=== PATIENT | male | born 1950 | race Caucasian/White ===

== ENCOUNTER 2017-06-06 15:00 | Observation (INO) | payer MEDICARE, OTHER ==
[~2017-06-06] VITALS: Ht 172.7 cm; Wt 97.5 kg
[2017-06-06 15:02] VITALS: BP 233/98; PULSE 86; RESP 16; TEMP 97.7; O2SAT 96
[2017-06-06 15:30] VITALS: BP 204/93
[2017-06-06] MEDS ORDERED: ASPIRIN 81 MG CHEW TAB CHEW ONE (15:30)
[2017-06-06] MEDS ORDERED: NITROGLYCERIN 0.4 MG SL 25 TABS/BTL SL PRN (15:30)
[2017-06-06 15:49] VITALS: BP 177/79; PULSE 82; RESP 20; O2SAT 95
--- NOTE | 2017-06-06 15:55 | RADRPT ---
EXAM DATE/TIME: 06/06/2017 15:32 [place] COMPARISON: No previous studies available for comparison. INDICATIONS : Chest pain. MEDICAL HISTORY : None. SURGICAL HISTORY : Spine stimulator. Cardiac stents. ENCOUNTER: Initial ACUITY: 2 days PAIN SCORE: 8/10 LOCATION: Bilateral chest FINDINGS: PA and lateral views of the chest demonstrate the lungs to be symmetrically aerated without evidence of mass, infiltrate or effusion. There is eventration of the right hemidiaphragm. The cardiomediasti nal contours are unremarkable. Osseous structures are intact. The stimulator lead overlies the centr al canal with the tips terminating at the approximate T5-T6 level. A humeral head prosthesis is seen on the left. CONCLUSION: No acute disease. Chris Cueva Jr., MD on June 06, 2017 at 15:52 Board Certified Radiologist. This report was verified electronically.
[2017-06-06 16:15] LABS: AUTOMATED NEUTROPHIL # 6.3 TH/MM3 (1.8-7.7); BASOPHIL # 0.1 TH/MM3 (0-0.2); BASOPHIL % 0.9 % (0.0-2.0); EOSINOPHIL % 0.5 % (0.0-4.0); LYMPH % 23.9 % (9.0-44.0); LYMPHOCYTE # 2.3 TH/MM3 (1.0-4.8); MEAN CELL VOLUME 92.8 FL (80.0-100.0); MEAN CORPUSCULAR HEMOGLOBIN 30.4 PG (27.0-34.0); MEAN CORPUSCULAR HGB CONC 32.8 % (32.0-36.0); MONO % 8.5 % (0.0-8.0); NEUT % 66.2 % (16.0-70.0); PLATELET COUNT 188 TH/MM3 (150-450); RED BLOOD COUNT 4.53 MIL/MM3 (4.50-5.90); RED CELL DISTRIBUTION WIDTH 14.7 % (11.6-17.2); WHITE BLOOD COUNT 9.5 TH/MM3 (4.0-11.0)
[2017-06-06 16:25] LABS: APTT (PATIENT) 23.3 SEC (24.3-30.1); INTERNATIONAL NORMALIZED RATIO 0.9 RATIO; PROTHROMBIN TIME - PATIENT 10.1 SEC (9.8-11.6)
[2017-06-06 16:32] LABS: CREATINE KINASE 159 U/L (39-308)
[2017-06-06 16:34] LABS: ANION GAP 7 MEQ/L (5-15); BICARBONATE 20.7 MEQ/L (21.0-32.0); BLOOD UREA NITROGEN 32 MG/DL (7-18); CHLORIDE 107 MEQ/L (98-107); GLOMERULAR FILTRATION RATE 69 ML/MIN (>89); MAGNESIUM 2.2 MG/DL (1.5-2.5); POTASSIUM 4.8 MEQ/L (3.5-5.1); SODIUM (NA) 135 MEQ/L (136-145)
[2017-06-06 16:35] LABS: HEMO FLAGS AUTO DIFF
[2017-06-06] MEDS ORDERED: ZANT150T2 PO (16:42)
[2017-06-06] MEDS ORDERED: HYDR-3583 PO (16:42)
[2017-06-06] MEDS ORDERED: LEVOTAB PO (16:42)
[2017-06-06] MEDS ORDERED: CLOP75TA PO (16:42)
[2017-06-06] MEDS ORDERED: LISI10TA3 PO (16:42)
[2017-06-06] MEDS ORDERED: ROSU1TAB8 PO (16:42)
[2017-06-06] MEDS ORDERED: FENT25DI T-DERMAL (16:42)
[2017-06-06] MEDS ORDERED: VERA300C PO (16:42)
[2017-06-06] MEDS ORDERED: PANT40TA3 PO (16:42)
[2017-06-06] MEDS ORDERED: CELE200C PO (16:42)
[2017-06-06] MEDS ORDERED: ASPI-516 CHEW (16:42)
[2017-06-06] MEDS ORDERED: FINA1TAB16 PO (16:42)
[2017-06-06 17:35] VITALS: BP 155/72; PULSE 61; RESP 18; O2SAT 96
[2017-06-06] MEDS ORDERED: SODIUM CHLORIDE 0.9% FLUSH 10 ML FLUSH IV FLUSH PRN (17:45)
[2017-06-06] MEDS ORDERED: NALOXONE HCL 0.4 MG/ML AMP IV PUSH PRN (17:45)
[2017-06-06 18:16] LABS: BANDS 2 % (0-6); MYELOCYTES 1 % (0-0); NEUTROPHIL # MANUAL DIFF 6.9 TH/MM3 (1.8-7.7); POLYS (SEG NEUTROPHILS) 70 % (16-70); WBC DIFF SAMPLE 100
[2017-06-06 18:17] LABS: PLATELET ESTIMATE SMEAR NORMAL (NORMAL); PLATELET MORPHOLOGY NORMAL (NORMAL); SCAN/DIFF FINAL DIFF MANUAL
--- NOTE | 2017-06-06 18:18 | HHI.HP ---
HPI Service [facility] Primary Care Physician No Primary Care Physician Admission Diagnosis chest pain Diagnoses: Travel History International Travel<30 Days: No Contact w/Intl Traveler <30 Da: No Traveled to Known Affected Are: No History of Present Illness chest pain midsternal with radiation to shoulder blades pressure like shortness of breath has been sweating a lot more in past 2 weeks like hot flushes similar to what he had about 1 week prior to heart attack- in november 2016 s/p 2 stent BP was high on arrival here not sure of bp at home0 did not bring machine took nitro but did not help but here more ntg given and asa and now it is improved - and now gone was having bad acid reflux like burning has hx of barretts and need egd every year no other symptoms recent travel from [place] and arrived monday- [address] Past Family Social History Past Medical History htn cad- 2 stents november 2016 heart murmur skin cancer - basal cell , melanoma- resected several years GERD/ Barretts Past Surgical History egd colonoscopy cornary angiogram stenting cholecystectomy appendectomy bilateral rotator left shoulder replaced 2 back surgery spinal stimulator knee surgery toe surgery tonsilectomy eye surgery for cataract 2 carpel tunnels Allergies: Coded Allergies: Penicillins (Verified Allergy, Unknown, 06/06/17) Uncoded Allergies: no mri due to metal in eyes (Allergy, Severe, pt was a welder production line combination, 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) neelam (Allergy, Severe, infection within 24 hours after placement, ) pt states he is really allergic to surgical neelam Family History sister- from heart issues mom- lung cancer dad- when pt was 10 yo, sister- meningitis at 3 yo Social History smokes cigars for about 35yrs, quit in november 2016 drink 3 shots a night no drugs Physical Exam Vital Signs Vital Signs Date Time Temp Pulse Resp B/P (MAP) Pulse Ox O2 Delivery O2 Flow Rate FiO2 06/06/17 17:35 61 18 155/72 (99) 96 Room Air 06/06/17 16:21 66 18 95 Room Air 06/06/17 15:49 82 20 177/79 (111) 95 Room Air 06/06/17 15:30 204/93 (130) 06/06/17 15:02 97.7 86 16 233/98 (143) 96 Physical Exam GENERAL: This is a well-nourished, well-developed patient, in no apparent distress. SKIN: No rashes, ecchymoses or lesions. Cool and dry. HEAD: Atraumatic. Normocephalic. No temporal or scalp tenderness. EYES: Pupils equal round and reactive. Extraocular motions intact. No scleral icterus. No injection or drainage. ENT: Nose without bleeding, purulent drainage or septal hematoma. Throat without erythema, tonsillar hypertrophy or exudate. Uvula midline. Airway patent. NECK: Trachea midline. No JVD or lymphadenopathy. Supple, nontender, no meningeal signs. CARDIOVASCULAR: Regular rate and rhythm without murmurs, gallops, or rubs. RESPIRATORY: Clear to auscultation. Breath sounds equal bilaterally. No wheezes , rales, or rhonchi. GASTROINTESTINAL: Abdomen soft, non-tender, nondistended. No hepato-splenomegaly , or palpable masses. No guarding. MUSCULOSKELETAL: Extremities without clubbing, cyanosis, or edema. No joint tenderness, effusion, or edema noted. No calf tenderness. Negative Homans sign bilaterally. NEUROLOGICAL: Awake and alert. Cranial nerves II through XII intact. Motor and sensory grossly within normal limits. Five out of 5 muscle strength in all muscle groups. Normal speech. Laboratory Laboratory Tests Test 06/06/17 15:45 White Blood Count 9.5 Red Blood Count 4.53 Hemoglobin 13.8 Hematocrit 42.0 Mean Corpuscular Volume 92.8 Mean Corpuscular Hemoglobin 30.4 Mean Corpuscular Hemoglobin Concent 32.8 Red Cell Distribution Width 14.7 Platelet Count 188 Mean Platelet Volume 7.5 Neutrophils (%) (Auto) 66.2 Lymphocytes (%) (Auto) 23.9 Monocytes (%) (Auto) 8.5 Eosinophils (%) (Auto) 0.5 Basophils (%) (Auto) 0.9 Neutrophils # (Auto) 6.3 Lymphocytes # (Auto) 2.3 Monocytes # (Auto) 0.8 Eosinophils # (Auto) 0.0 Basophils # (Auto) 0.1 CBC Comment AUTO DIFF Prothrombin Time 10.1 Prothromb Time International Ratio 0.9 Activated Partial Thromboplast Time 23.3 Blood Urea Nitrogen 32 Creatinine 1.07 Random Glucose 108 Calcium Level 8.9 Magnesium Level 2.2 Sodium Level 135 Potassium Level 4.8 Chloride Level 107 Carbon Dioxide Level 20.7 Anion Gap 7 Estimat Glomerular Filtration Rate 69 Total Creatine Kinase 159 Creatine Kinase MB 4.0 Troponin I LESS THAN 0.02 B-Type Natriuretic Peptide 44 Lipase 138 Result Diagram: 06/06/17 1545 06/06/17 1545 Caprini VTE Risk Assessment Caprini Risk Assessment Model Point Value = 1 Point Value = 2 Point Value = 3 Point Value = 5 Age 41-60 Minor surgery BMI > 25 kg/m2 Swollen legs Varicose veins or History of unexplained or recurrent spontaneous Oral contraceptives or hormone replacement Sepsis (< 1 month) Serious lung disease, including pneumonia (< 1 month) Abnormal pulmonary function Acute myocardial infarction Congestive heart failure (< 1 month) History of inflammatory bowel disease Medical patient at bed rest Age 61-74 Arthroscopic surgery Major open surgery (> 45 min) Laparoscopic surgery (> 45 min) Malignancy Confined to bed (> 72 hours) Immobilizing plaster cast Central venous access Age >= 75 History of VTE Family history of VTE Factor V Leiden Prothrombin [id number] Lupus anticoagulant Anticardiolipin antibodies Elevated serum homocysteine Heparin-induced thrombocytopenia Other congenital or acquired thrombophilia Stroke (< 1 month) Elective arthroplasty Hip, pelvis, or leg fracture Acute spinal cord injury (< 1 month) Prophylaxis Regimen Total Risk Factor Score Risk Level Prophylaxis Regimen 0-1 Low Early ambulation 2 Moderate Order ONE of the following: *Sequential Compression Device (SCD) *Heparin 5000 units SQ BID 3-4 Higher Order ONE of the following medications: *Heparin 5000 units SQ TID *Enoxaparin/Lovenox 40 mg SQ daily (WT < 150 kg, CrCl > 30 mL/min) *Enoxaparin/Lovenox 30 mg SQ daily (WT < 150 kg, CrCl > 10-29 mL/min) *Enoxaparin/Lovenox 30 mg SQ BID (WT < 150 kg, CrCl > 30 mL/min) AND/OR *Sequential Compression Device (SCD) 5 or more Highest Order ONE of the following medications: *Heparin 5000 units SQ TID (Preferred with Epidurals) *Enoxaparin/Lovenox 40 mg SQ daily (WT < 150 kg, CrCl > 30 mL/min) *Enoxaparin/Lovenox 30 mg SQ daily (WT < 150 kg, CrCl > 10-29 mL/min) *Enoxaparin/Lovenox 30 mg SQ BID (WT < 150 kg, CrCl > 30 mL/min) AND *Sequential Compression Device (SCD) Vidal Ward MD Jun 06, 2017 18:18
--- NOTE | 2017-06-06 18:28 | PD ---
HPI Chief Complaint: Cardiac Complaint Time Seen by Provider: 15:29 Travel History International Travel<30 days: No Contact w/Intl Traveler<30days: No Traveled to known affect area: No History of Present Illness HPI This is a 66-year-old male who has a history of 2 stents that were placed in November by a fast food cashier in [place] who presents to the emergency department with left-sided chest discomfort described as a heaviness radiating to the back , constant, moderate severity with no associated shortness of breath or nausea. He did feel clammy earlier today. He said the pain started last night and was intermittent but this morning it's been constant. He says it feels just like when he required the stents in the past. PFSH Past Medical History Hx Anticoagulant Therapy: Yes (PLAVIX) Arthritis: Yes Heart Rhythm Problems: Yes (murmur) Cancer: Yes (skin) Cardiac Catheterization: Yes Cardiovascular Problems: Yes High Cholesterol: Yes Chest Pain: Yes Diminished Hearing: Yes Kidney Stones: Yes Musculoskeletal: Yes Integumentary: Yes Myocardial Infarction: Yes Tetanus Vaccination: < 5 Years Influenza Vaccination: Yes Past Surgical History Abdominal Surgery: Yes Appendectomy: Yes Cardiac Surgery: Yes Coronary Stent: Yes Eye Surgery: Yes Joint Replacement: Yes Tonsillectomy: Yes Other Surgery: Yes (Back and toe have metal) Social History Alcohol Use: Yes (pt states "every night - two shots", pt had 3 shots last night) Tobacco Use: No Substance Use: No Allergies-Medications (Allergen,Severity, Reaction): Coded Allergies: Penicillins (Verified Allergy, Unknown, 06/06/17) Uncoded Allergies: no mri due to metal in eyes (Allergy, Severe, pt was a heliarc welder, 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) neelam (Allergy, Severe, infection within 24 hours after placement, ) pt states he is really allergic to surgical neelam Reported Meds & Prescriptions Reported Meds & Active Scripts Active Reported Zantac (Ranitidine HCl) 150 Mg Tab 150 Mg PO DAILY Fentanyl Patch 72 HR (Fentanyl) 25 Mcg/Hr Patch 25 Mcg T-DERMAL Q24H Hydrocodone-Acetaminophen 10-325 mg Tab 1 Tab PO Q12HR PRN Pantoprazole (Pantoprazole Sodium) 40 Mg Tab 40 Mg PO DAILY Lisinopril 10 Mg Tab 10 Mg PO DAILY Clopidogrel (Clopidogrel Bisulfate) 75 Mg Tab 75 Mg PO DAILY Rosuvastatin (Rosuvastatin Calcium) 20 Mg Tab 20 Mg PO DAILY Aspirin 81 Mg Chew 81 Mg CHEW DAILY Finasteride (Finasteride (Alopecia)) 1 Mg Tab 5 Mg PO DAILY Verapamil ER 24 HR (Verapamil HCl) 300 Mg Cap 300 Mg PO HS Celebrex (Celecoxib) 200 Mg Cap 200 Mg PO DAILY Levocetirizine 5 Mg Tab 5 Mg PO DAILY Review of Systems Except as stated in HPI: all other systems reviewed are Neg Physical Exam Narrative GENERAL:Well appearing, no acute distress SKIN: Focused skin assessment warm and dry. HEAD: Atraumatic. Normocephalic. EYES: Pupils equal and round. No injection or drainage. ENT: Moist mucous membranes NECK: Trachea midline. CARDIOVASCULAR: Regular rate and rhythm. No murmur appreciated. RESPIRATORY: Clear to auscultation. Breath sounds equal bilaterally. GASTROINTESTINAL: Abdomen soft, non-tender, nondistended. MUSCULOSKELETAL: No obvious deformities. NEUROLOGICAL: Awake and alert. No obvious cranial nerve deficits. Moving all extremities PSYCHIATRIC: Appropriate mood and affect; insight and judgment normal. Data Data Last Documented VS Vital Signs Date Time Temp Pulse Resp B/P (MAP) Pulse Ox O2 Delivery O2 Flow Rate FiO2 06/06/17 17:35 61 18 155/72 (99) 96 Room Air 06/06/17 15:02 97.7 Orders Orders Electrocardiogram (06/06/17 15:11) Basic Metabolic Panel (Bmp) (06/06/17 15:11) B-Type Natriuretic Peptide (06/06/17 15:11) Ckmb (Isoenzyme) Profile (06/06/17 15:11) Complete Blood Count With Diff (06/06/17 15:11) Magnesium (Mg) (06/06/17 15:11) Prothrombin Time / Inr (Pt) (06/06/17 15:11) Act Partial Throm Time (Ptt) (06/06/17 15:11) Troponin I (06/06/17 15:11) Lipase (06/06/17 15:11) Chest, Pa & Lat (06/06/17 15:11) Nitroglycerin Sl (Nitrostat Sl) (06/06/17 15:30) Aspirin Chew (Aspirin Chew) (06/06/17 15:30) CKMB (06/06/17 15:45) CKMB% (06/06/17 15:45) Admit Order (Ed Use Only) (06/06/17 17:42) Labs Laboratory Tests Test 06/06/17 15:45 White Blood Count 9.5 TH/MM3 Red Blood Count 4.53 MIL/MM3 Hemoglobin 13.8 GM/DL Hematocrit 42.0 % Mean Corpuscular Volume 92.8 FL Mean Corpuscular Hemoglobin 30.4 PG Mean Corpuscular Hemoglobin Concent 32.8 % Red Cell Distribution Width 14.7 % Platelet Count 188 TH/MM3 Mean Platelet Volume 7.5 FL Neutrophils (%) (Auto) 66.2 % Lymphocytes (%) (Auto) 23.9 % Monocytes (%) (Auto) 8.5 % Eosinophils (%) (Auto) 0.5 % Basophils (%) (Auto) 0.9 % Neutrophils # (Auto) 6.3 TH/MM3 Lymphocytes # (Auto) 2.3 TH/MM3 Monocytes # (Auto) 0.8 TH/MM3 Eosinophils # (Auto) 0.0 TH/MM3 Basophils # (Auto) 0.1 TH/MM3 CBC Comment AUTO DIFF Differential Total Cells Counted 100 Neutrophils % (Manual) 70 % Band Neutrophils % 2 % Lymphocytes % 24 % Monocytes % 3 % Neutrophils # (Manual) 6.9 TH/MM3 Myelocytes 1 % Differential Comment FINAL DIFF MANUAL Platelet Estimate NORMAL Platelet Morphology Comment NORMAL Prothrombin Time 10.1 SEC Prothromb Time International Ratio 0.9 RATIO Activated Partial Thromboplast Time 23.3 SEC Blood Urea Nitrogen 32 MG/DL Creatinine 1.07 MG/DL Random Glucose 108 MG/DL Calcium Level 8.9 MG/DL Magnesium Level 2.2 MG/DL Sodium Level 135 MEQ/L Potassium Level 4.8 MEQ/L Chloride Level 107 MEQ/L Carbon Dioxide Level 20.7 MEQ/L Anion Gap 7 MEQ/L Estimat Glomerular Filtration Rate 69 ML/MIN Total Creatine Kinase 159 U/L Creatine Kinase MB 4.0 NG/ML Troponin I LESS THAN 0.02 NG/ML B-Type Natriuretic Peptide 44 PG/ML Lipase 138 U/L [facility] Medical Decision Making Medical Screen Exam Complete: Yes Emergency Medical Condition: Yes Interpretation(s) afebrile, no tachycardia, hypertension electrolytes within normal limits troponin normal bnp 44 lipase 138 cxr: no acute process Differential Diagnosis nstemi, unstable angina, angina, aortic dissection, pulmonary embolism Narrative Course This is a 66-year-old male who has a history of coronary artery disease and 2 stents who presents to the emergency department with chest discomfort. That is similar to when she required stents in the past. EKG is reassuring. Patient was placed on a monitor and an IV was established. Labs were reassuring. Patient will be admitted for serial cardiac enzymes. He also was quite hypertensive on arrival but his blood pressure improved with nitroglycerin. Physician Communication Physician Communication Discussed with Dr. Ward Diagnosis Primary Impression: Chest pain Qualified Codes: R07.9 - Chest pain, unspecified Admitting Information Admitting Physician Requests: Observation Kallie Cox MD Jun 06, 2017 18:28
[2017-06-06 19:00] VITALS: BP 177/77; PULSE 70; RESP 20; O2SAT 96
[2017-06-06 19:54] VITALS: BP 152/84; PULSE 72; RESP 19; TEMP 98.2; O2SAT 97
[2017-06-06] MEDS ORDERED: fentaNYL 25 MCG/HR PATCH T-DERMAL SCH (20:00)
[2017-06-06] MEDS ORDERED: REMOVE OLD DURAGESIC (FENTANYL) PATCH T-DERMAL SCH (20:00)
[2017-06-06] MEDS: SODIUM CHLORIDE 0.9% FLUSH 10 ML FLUSH IV FLUSH SCH (21:00)
[2017-06-06] MEDS ORDERED: VERAPAMIL 300 MG PO SCH (21:00)
--- NOTE | 2017-06-06 21:33 | EKG ---
Date Performed: 06/06/2017 Time Performed: 15:27:22 PTAGE: 66 years EKG: Sinus rhythm RIGHT BUNDLE BRANCH BLOCK ABNORMAL ECG NO PREVIOUS TRACING DOCTOR: Jackie Holman Interpretating Date/Time 06/06/2017 21:31:49
[2017-06-06 23:29] LABS: CREATINE KINASE 100 U/L (39-308)
[2017-06-07] VITALS (11 sets, daily range): BP systolic 116–172; BP diastolic 69–97; PULSE 54–76; RESP 16–21; TEMP 96.1–98.9; O2SAT 96–97
[2017-06-07] MEDS ORDERED: LORazepam 2 MG TAB PO PRN (05:45)
[2017-06-07] MEDS ORDERED: FLUMAZENIL 0.5 MG/5 ML VIAL IV PUSH PRN (05:45)
[2017-06-07] MEDS ORDERED: cloNIDine HCL 0.1 MG TAB PO PRN (05:45)
[2017-06-07] MEDS ORDERED: SENNOSIDES 8.6 MG TAB PO PRN (05:45)
[2017-06-07] MEDS ORDERED: ENALAPRILAT 1.25 MG/ML VIAL IV PUSH PRN (05:45)
[2017-06-07] MEDS ORDERED: LORazepam 2 MG/ML VIAL IV PUSH PRN ×4 (05:45)
[2017-06-07] MEDS ORDERED: BISACODYL 10 MG SUPP RECTAL PRN (05:45)
[2017-06-07] MEDS ORDERED: LACTULOSE SYRUP 20 GM/30 ML CUP PO PRN (05:45)
[2017-06-07] MEDS ORDERED: LORazepam 1 MG TAB PO PRN (05:45)
[2017-06-07] MEDS ORDERED: MAGNESIUM HYDROXIDE SUSP 30 ML CUP PO PRN (05:45)
[2017-06-07] MEDS ORDERED: ONDANSETRON HCL 4 MG/2 ML VIAL IVP PRN (05:45)
[2017-06-07] MEDS ORDERED: HALOPERIDOL LACTATE 5 MG/ML AMP IM PRN (05:45)
[2017-06-07] MEDS ORDERED: ACETAMINOPHEN 325 MG TAB PO PRN (05:45)
[2017-06-07 06:04] LABS: CREATINE KINASE 178 U/L (39-308)
[2017-06-07 08:13] LABS: AUTOMATED NEUTROPHIL # 5.3 TH/MM3 (1.8-7.7); BASOPHIL # 0.1 TH/MM3 (0-0.2); BASOPHIL % 0.9 % (0.0-2.0); EOSINOPHIL # 0.1 TH/MM3 (0-0.4); EOSINOPHIL % 0.6 % (0.0-4.0); HEMATOCRIT 42.5 % (39.0-51.0); HEMO FLAGS DIFF FINAL; LYMPH % 27.1 % (9.0-44.0); LYMPHOCYTE # 2.3 TH/MM3 (1.0-4.8); MEAN CELL VOLUME 92.5 FL (80.0-100.0); MEAN CORPUSCULAR HEMOGLOBIN 30.5 PG (27.0-34.0); MONO % 9.5 % (0.0-8.0); NEUT % 61.9 % (16.0-70.0); PLATELET COUNT 162 TH/MM3 (150-450); RED BLOOD COUNT 4.59 MIL/MM3 (4.50-5.90); RED CELL DISTRIBUTION WIDTH 14.5 % (11.6-17.2); WHITE BLOOD COUNT 8.5 TH/MM3 (4.0-11.0)
[2017-06-07 08:29] LABS: BICARBONATE 22.2 MEQ/L (21.0-32.0); POTASSIUM 4.8 MEQ/L (3.5-5.1)
[2017-06-07] MEDS ORDERED: VERAPAMIL 300 MG PO SCH (09:00)
[2017-06-07] MEDS ORDERED: NON-FORMULARY DRUG (Rosuvastatin 20 MG) PO SCH (09:00)
[2017-06-07] MEDS ORDERED: NON-FORMULARY DRUG (Ranitidine (Zantac) 150 MG) PO SCH (09:00)
[2017-06-07] MEDS ORDERED: ATORVASTATIN 40 MG TAB PO SCH (09:00)
[2017-06-07] MEDS ORDERED: NON-FORMULARY DRUG (Levocetirizine 5 MG) PO SCH (09:00)
[2017-06-07] MEDS ORDERED: LEVOCETIRIZINE 5 MG PO SCH (09:00)
[2017-06-07] MEDS: FOLIC ACID 1 MG TAB PO SCH (10:48)
[2017-06-07] MEDS: DOCUSATE SODIUM 50 MG/SENNA 8.6 MG TAB PO SCH ×2 (10:48→20:10)
[2017-06-07] MEDS: FAMOTIDINE 20 MG TAB PO SCH (10:48)
[2017-06-07] MEDS: THIAMINE HCL 100 MG TAB PO SCH (10:49)
[2017-06-07] MEDS: MULTIVITAMINS/MINERALS THERAPEUTIC TAB PO SCH (10:49)
[2017-06-07] MEDS: LISINOPRIL 10 MG TAB PO SCH (10:49)
[2017-06-07] MEDS: PANTOPRAZOLE SOD 40 MG DELAYED RELEASE TAB PO SCH (10:50)
[2017-06-07] MEDS: ASPIRIN 81 MG CHEW TAB CHEW SCH (10:50)
[2017-06-07] MEDS: FINASTERIDE 5 MG TAB PO SCH (10:50)
[2017-06-07] MEDS: CLOPIDOGREL 75 MG TAB PO SCH (10:51)
[2017-06-07] MEDS: SODIUM CHLORIDE 0.9% FLUSH 10 ML FLUSH IV FLUSH SCH ×2 (10:51→20:10)
[2017-06-07] MEDS: ACETAMINOPHEN/HYDROcodone 325 MG/10 MG TAB PO PRN (14:11)
[2017-06-07] MEDS ORDERED: IOHEXOL 350 MG/ML 100 ML BTL (for Cath Lab) OTHER ONE (15:40)
[2017-06-07] MEDS ORDERED: HEPARIN-NS/PF INJ 1,000 ML ONE (15:40)
[2017-06-07] MEDS ORDERED: MIDAZOLAM HCL 2 MG/2 ML VIAL ONE ×4 (15:42→16:51)
--- NOTE | 2017-06-07 16:29 | HHI.PR ---
Subjective Remarks Follow-up chest pain. Had transient chest pain this morning with spontaneous resolution. Awaiting cardiac catheterization. Discussed with RN Objective Vitals Vital Signs Date Time Temp Pulse Resp B/P (MAP) Pulse Ox O2 Delivery O2 Flow Rate FiO2 06/07/17 13:58 162/73 (102) 06/07/17 13:44 98.0 76 19 172/83 (112) 97 06/07/17 10:45 60 06/07/17 08:11 98.2 62 21 170/80 (110) 96 06/07/17 04:34 96.1 54 18 156/74 (101) 97 06/07/17 00:11 96.6 58 16 161/75 (103) 97 06/06/17 22:56 18 06/06/17 19:54 98.2 72 19 152/84 (106) 97 06/06/17 19:00 70 20 177/77 (110) 96 Room Air 06/06/17 17:35 61 18 155/72 (99) 96 Room Air I/O 06/06/17 06/06/17 06/06/17 06/07/17 06/07/17 06/07/17 07:00 15:00 23:00 07:00 15:00 23:00 Intake Total 200 ml Output Total 400 ml 325 ml Balance -400 ml 200 ml -325 ml Intake Oral 200 ml Output Urine Total 400 ml 325 ml # Voids 1 # Bowel Movements 1 Result Diagram: 06/07/17 0756 06/07/17 0756 Imaging Last Impressions Chest X-Ray 06/06/17 1511 Signed Impressions: Service Date/Time: Tuesday, June 06, 2017 15:32 - CONCLUSION: No acute disease. Chris Cueva Jr., MD Objective Remarks GENERAL: Well-developed, well-nourished in no distress SKIN: Warm and dry. CARDIOVASCULAR: Regular rhythm. Bradycardic. No chest wall tenderness RESPIRATORY: No accessory muscle use. Clear to auscultation. Breath sounds equal bilaterally. GASTROINTESTINAL: Abdomen soft, non-tender, nondistended. MUSCULOSKELETAL: Extremities without clubbing, cyanosis, or edema. No obvious deformities. NEUROLOGICAL: Awake and alert. No obvious cranial nerve deficits. Motor grossly within normal limits. Five out of 5 muscle strength in the arms and legs. Normal speech. PSYCHIATRIC: Appropriate mood and affect; insight and judgment normal. Procedures For cardiac catheterization A/P Problem List: (1) Chest pain ICD Code: R07.9 - Chest pain, unspecified Status: Acute Assessment and Plan Chest pain with history of coronary artery disease status post stent. Patient ruled out for SC. 4 cardiac catheterization. Continue aspirin, Plavix, ALDA inhibitor and Lipitor. Unable to start beta jose secondary to bradycardia. Low suspicion for PE GERD/Aguirre's esophagus. This may be contributing to his symptoms. Continue Pepcid and PPI. Antireflux mechanisms discussed with the patient Hyperglycemia. Obtain A1c Alcohol abuse. Counseled. [facility] protocol DVT prophylaxis with SCD and early ambulation Discharge Planning Discharge patient to home if cleared by cardiology Condition on discharge: Improved Regular Diet as tolerated Ad Haley activity Rx written: Follow-up with primary care physician and cardiology Problem Qualifiers (1) Chest pain: Qualified Codes: R07.9 - Chest pain, unspecified Jimmy Cunningham MD Jun 07, 2017 16:29
[2017-06-07] MEDS ORDERED: CLOPIDOGREL 300 MG TAB ONE (16:47)
[2017-06-07] MEDS ORDERED: HEPARIN SODIUM - IV 10,000 UNITS/10 ML VIAL ONE (16:47)
[2017-06-07] MEDS ORDERED: SODIUM CHLOR 0.9% 1000 ML INJ 1,000 ML IV SCH (17:31)
[2017-06-07] MEDS ORDERED: MISC INFORMATION XX ONE (17:45)
--- NOTE | 2017-06-07 18:30 | EKG ---
Date Performed: 06/07/2017 Time Performed: 04:25:37 PTAGE: 66 years EKG: SINUS BRADYCARDIA RIGHT BUNDLE BRANCH BLOCK ABNORMAL ECG PREVIOUS TRACING : 06/06/2017 23.38 Compared to the previous tracing rate slower DOCTOR: Jackie Holman Interpretating Date/Time 06/07/2017 18:30:06
--- NOTE | 2017-06-07 18:49 | EKG ---
Date Performed: 06/06/2017 Time Performed: 23:38:38 PTAGE: 66 years EKG: Sinus rhythm WITH MARKED SINUS ARRHYTHMIA RIGHT BUNDLE BRANCH BLOCK ABNORMAL ECG PREVIOUS TRACING : 06/06/2017 15.27 Compared to the previous tracing rate slower DOCTOR: Jackie Holman Interpretating Date/Time 06/07/2017 18:47:42
--- NOTE | 2017-06-07 20:03 | MB ---
cc: JACKIE HOLMAN DATE OF CONSULTATION 06/07/2017 HISTORY OF THE PRESENT ILLNESS Mr. Mohamud is a 66-year-old white male with a history of multivessel coronary artery disease. He presented with substernal chest discomfort radiating to his shoulder blades which had the character of pressure and was similar to his previous pain he had with his myocardial infarction in November of 2016. He had two stents placed at [facility] in [place]. He also complains of diaphoresis and shortness of breath and elevated blood pressure. He was given nitroglycerin in the emergency room with improvement of his symptoms. PAST MEDICAL HISTORY Positive for: 1. Multivessel coronary artery disease, placement of stents to the LAD and circumflex in November of 2016. 2. Myocardial infarction. 3. History of hypertension. 4. Aortic stenosis. 5. Basal cell cancer and melanoma resected in the past. 6. History of gastroesophageal reflux disease and Aguirre's esophagus. 7. History of cholecystectomy. 8. Appendectomy. 9. Dyslipidemia. 10. Bilateral rotator cuff surgery. 12. Two back surgeries. 13. Spinal stimulator. 14. Knee surgery. 15. Toe surgery. 16. Tonsillectomy. 17. Eye surgery for cataract surgery. 18. Carpal tunnel surgery. MEDICATIONS Include: 1. Levocitrizine. 2. Plavix. 3. Baby aspirin. 4. Rosuvastatin 20 milligrams a day. 5. Verapamil. 6. Lisinopril. 7. Fentanyl patch. 8. Hydrocodone / acetaminophen. 9. Zantac. 10. Pantoprazole. 11. Finasteride. ALLERGIES PENICILLIN. SOCIAL HISTORY The patient does not smoke. He does not drink alcohol. The patient smoked cigars until his infarction in November of 2016. He drinks three shots a night. He is , accompanied by his . FAMILY HISTORY Positive for heart disease in father and his sister. REVIEW OF SYSTEMS Otherwise negative. PHYSICAL EXAMINATION VITAL SIGNS: Blood pressure 162/73, pulse 96 and regular. HEENT: Negative. 2+ carotid upstrokes. No bruits. LUNGS: Clear. HEART: Regular with 2 to 3 over 6 systolic ejection murmur in the right upper sternal border and a 2/6 systolic murmur at the apex. No gallops. ABDOMEN: Soft. No bruits. EXTREMITIES: Without edema. 2+ distal pulses. NEUROLOGIC: Grossly nonfocal. EKG was reviewed and showed normal sinus rhythm, right axis and right bundle-branch block. LABORATORY DATA Hemoglobin 14.0. Potassium 4.8. Creatinine 1.0. Troponin negative times three. BNP 44. DIAGNOSES 1. Acute coronary syndrome, unstable angina. 2. Coronary artery disease, history of multivessel stenting. 3. Aortic stenosis. 4. Hypertension. 5. Dyslipidemia. 6. Aguirre's esophagus. DISPOSITION Mr. Mohamud will undergo cardiac catheterization and coronary intervention if necessary. He understands the risks and benefits, and wishes to proceed. We will continue long-term therapy with Plavix and baby ASA. We will continue and intensify aggressive modification of his cardiac risk factors. He will follow up with his director enterprise systems in [place] after discharge. Jackie Holman MD OQ/KK /5:28 PM /7:31 PM ELIESER
[2017-06-07 21:21] LABS: AUTOMATED NEUTROPHIL # 5.6 TH/MM3 (1.8-7.7); BASOPHIL # 0.1 TH/MM3 (0-0.2); BASOPHIL % 0.8 % (0.0-2.0); EOSINOPHIL % 0.4 % (0.0-4.0); HEMATOCRIT 40.3 % (39.0-51.0); HEMO FLAGS DIFF FINAL; LYMPH % 23.1 % (9.0-44.0); LYMPHOCYTE # 1.9 TH/MM3 (1.0-4.8); MEAN CORPUSCULAR HEMOGLOBIN 30.6 PG (27.0-34.0); MEAN CORPUSCULAR HGB CONC 33.3 % (32.0-36.0); MONO % 9.5 % (0.0-8.0); NEUT % 66.2 % (16.0-70.0); PLATELET COUNT 166 TH/MM3 (150-450); RED BLOOD COUNT 4.38 MIL/MM3 (4.50-5.90); RED CELL DISTRIBUTION WIDTH 14.6 % (11.6-17.2); WHITE BLOOD COUNT 8.4 TH/MM3 (4.0-11.0)
[2017-06-08] VITALS (14 sets, daily range): BP systolic 125–135; BP diastolic 74–83; PULSE 56–106; RESP 18–20; TEMP 97.4–98.2; O2SAT 95–98
[2017-06-08] MEDS: ACETAMINOPHEN/HYDROcodone 325 MG/10 MG TAB PO PRN (04:51)
[2017-06-08 05:35] LABS: AUTOMATED NEUTROPHIL # 4.6 TH/MM3 (1.8-7.7); BASOPHIL # 0.1 TH/MM3 (0-0.2); EOSINOPHIL # 0.1 TH/MM3 (0-0.4); EOSINOPHIL % 0.8 % (0.0-4.0); HEMATOCRIT 41.8 % (39.0-51.0); HEMO FLAGS DIFF FINAL; LYMPH % 26.3 % (9.0-44.0); LYMPHOCYTE # 1.9 TH/MM3 (1.0-4.8); MEAN CELL VOLUME 90.8 FL (80.0-100.0); MEAN CORPUSCULAR HEMOGLOBIN 30.6 PG (27.0-34.0); MEAN CORPUSCULAR HGB CONC 33.8 % (32.0-36.0); MONO % 9.5 % (0.0-8.0); NEUT % 62.4 % (16.0-70.0); PLATELET COUNT 163 TH/MM3 (150-450); RED BLOOD COUNT 4.61 MIL/MM3 (4.50-5.90); RED CELL DISTRIBUTION WIDTH 14.7 % (11.6-17.2); WHITE BLOOD COUNT 7.3 TH/MM3 (4.0-11.0)
[2017-06-08 05:55] LABS: BICARBONATE 26.2 MEQ/L (21.0-32.0)
[2017-06-08 05:57] LABS: HDL CHOLESTEROL 64.6 MG/DL (40.0-60.0)
--- NOTE | 2017-06-08 08:29 | MA ---
cc: JUAN REYNA DATE 06/07/2017 INDICATION Acute coronary syndrome, unstable angina, coronary disease, history of LAD and circumflex coronary artery stenting, class IV angina. PROCEDURE PERFORMED 1. Retrograde left heart catheterization with left ventriculography and selective coronary angiography. 2. Angioplasty and stenting of the mid-right coronary artery. 3. Moderate sedation. ACCESS SITE Right femoral artery using ultrasound guidance. EQUIPMENT USED 5-Paraguayan pigtail catheter, JL-4 and AR modified coronary catheters. AR-1 guide, marker wire, 2.5 x 12 mm Compliant balloon for predilatation, 3.5 x 12 mm Jaren drug-eluting stent at 21 atmospheres, with distal portion postdilated with 4.0 x 8 mm noncompliant balloon at 23 atmospheres. MEDICATIONS 1. Versed IV 2. Fentanyl IV 3. Plavix 300 mg p.o. 4. Nitroglycerin IC 5. Heparin IV CONTRAST Omnipaque 185 cc COMPLICATIONS None BLOOD LOSS Less than 10 cc's METHOD OF HEMOSTASIS Angio-Seal closure RESULTS HEMODYNAMICS Heart rate: 81 beats per minute. Left ventricular end-diastolic pressure 5 mmHg. Left ventricle 148/5, aorta 103/62/78. LEFT VENTRICULOGRAPHY Left ventricular ejection fraction 65%. Wall motion normal. Moderate 2+ mitral regurgitation. CORONARY ANGIOGRAPHY Left main coronary artery patent. Left anterior descending coronary artery has 30% stenosis in the mid portion followed by a patent stent in the mid portion. D1 patent. D2 patent. Left circumflex artery is patent with patent stent in the mid portion. OM1 is patent. The right coronary has 50% stenosis in the proximal portion with mild aneurysmal dilatation and 80% focal stenosis in the mid portion. PDA patent, PLV patent. Stenosis in the right coronary artery 80%. Lesion length 8 mm. Pre-[place] flow 3, post-[place] flow 3, post-stenosis 0. Post intervention angiography revealed excellent patency of the stented segment and no evidence of dissection, thrombosis or distal embolization. DIAGNOSIS 1. Acute coronary syndrome. 2. Coronary artery disease with 80% stenosis of the mid-right coronary artery and patent stents in the left anterior descending artery and left circumflex artery. 3. Preserved left ventricular systolic function. 4. Moderate mitral regurgitation. 5. Moderate aortic stenosis. 6. Successful angioplasty and stenting of the mid-right coronary artery. DISPOSITION Mr. Mohamud will continue long-term therapy with Plavix and baby aspirin. We will continue and intensify aggressive modification of his cardiac risk factors. He will be seen back for followup with his video game script writer in [place] after discharge. MD KINGS Guan/HUANG /5:07 PM /8:10 AM MTDSidney
[2017-06-08] MEDS ORDERED: ATORVASTATIN 80 MG TAB PO SCH (09:00)
[2017-06-08] MEDS ORDERED: fentaNYL 25 MCG/HR PATCH T-DERMAL SCH (10:15)
--- NOTE | 2017-06-08 10:18 | HHI.PR ---
Subjective Remarks Patient seen in follow up for ACS/UA and now s/p stent Feels well no CP Discussed with RN patient complains of Back pain usually better with ambulation, lortab and fentanyl Objective Vitals Vital Signs Date Time Temp Pulse Resp B/P (MAP) Pulse Ox O2 Delivery O2 Flow Rate FiO2 06/08/17 05:00 58 06/08/17 04:00 97.5 57 20 128/74 (92) 96 06/08/17 04:00 57 06/08/17 03:00 64 06/08/17 02:00 56 06/08/17 01:00 64 06/08/17 00:00 97.4 62 19 125/80 (95) 98 06/08/17 00:00 62 06/07/17 23:00 70 06/07/17 22:00 64 06/07/17 21:00 58 06/07/17 20:00 60 06/07/17 20:00 98.9 60 18 116/69 (85) 96 06/07/17 17:45 68 18 136/97 (110) 97 06/07/17 13:58 162/73 (102) 06/07/17 13:44 98.0 76 19 172/83 (112) 97 06/07/17 10:45 60 I/O 06/07/17 06/07/17 06/07/17 06/08/17 06/08/17 06/08/17 07:00 15:00 23:00 07:00 15:00 23:00 Intake Total 200 ml 460 ml 320 ml Output Total 325 ml 400 ml 600 ml Balance 200 ml -325 ml 60 ml -280 ml Intake Oral 200 ml 460 ml 320 ml Output Urine Total 325 ml 400 ml 600 ml # Bowel Movements 1 Result Diagram: 06/08/17 0525 06/08/17 0525 Imaging Last Impressions Chest X-Ray 06/06/17 1511 Signed Impressions: Service Date/Time: Tuesday, June 06, 2017 15:32 - CONCLUSION: No acute disease. Chris Cueva Jr., MD Objective Remarks GENERAL: This is a well-nourished, well-developed patient, in no apparent distress. CARDIOVASCULAR: Regular rate and rhythm without murmurs, gallops, or rubs. RESPIRATORY: Clear to auscultation. Breath sounds equal bilaterally. No wheezes , rales, or rhonchi. GASTROINTESTINAL: Abdomen soft, non-tender, nondistended. Normal active bowel sounds MUSCULOSKELETAL: Extremities without clubbing, cyanosis, or edema. NEURO: Alert & Oriented x4 to person, place, time, situation. 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
[2017-06-08] MEDS: MULTIVITAMINS/MINERALS THERAPEUTIC TAB PO SCH (10:21)
[2017-06-08] MEDS: PANTOPRAZOLE SOD 40 MG DELAYED RELEASE TAB PO SCH (10:21)
[2017-06-08] MEDS: CLOPIDOGREL 75 MG TAB PO SCH (10:22)
[2017-06-08] MEDS: FINASTERIDE 5 MG TAB PO SCH (10:22)
[2017-06-08] MEDS: LISINOPRIL 10 MG TAB PO SCH (10:22)
[2017-06-08] MEDS: THIAMINE HCL 100 MG TAB PO SCH (10:22)
[2017-06-08] MEDS: ASPIRIN 81 MG CHEW TAB CHEW SCH (10:22)
[2017-06-08] MEDS: FOLIC ACID 1 MG TAB PO SCH (10:22)
[2017-06-08] MEDS: FAMOTIDINE 20 MG TAB PO SCH (10:23)
[2017-06-08] MEDS: DOCUSATE SODIUM 50 MG/SENNA 8.6 MG TAB PO SCH (10:23)
[2017-06-08] MEDS: SODIUM CHLORIDE 0.9% FLUSH 10 ML FLUSH IV FLUSH SCH (10:26)
--- NOTE | 2017-06-08 12:44 | PD.CARD.PN ---
Subjective Subjective Remarks No CP or SOB, feels well Objective Medications Current Medications Medications (Trade) Dose Ordered Sig/James Route Start Time Stop Time Status Last Admin (Nitrostat Sl) 0.4 mg Q5M PRN SL 06/06/17 15:30 06/06/17 15:42 (NS Flush) 2 ml UNSCH PRN IV FLUSH 06/06/17 17:45 (NS Flush) 2 ml BID IV FLUSH 06/06/17 21:00 06/08/17 10:26 (Narcan Inj) 0.4 mg UNSCH PRN IV PUSH 06/06/17 17:45 (Aspirin Chew) 81 mg DAILY CHEW 06/07/17 09:00 06/08/17 10:22 (Plavix) 75 mg DAILY PO 06/07/17 09:00 06/08/17 10:22 ([place] 10-325 Mg) 1 tab Q12HR PRN PO 06/06/17 18:30 06/08/17 04:51 (Prinivil) 10 mg DAILY PO 06/07/17 09:00 06/08/17 10:22 (Protonix) 40 mg DAILY PO 06/07/17 09:00 06/08/17 10:21 (Proscar) 5 mg DAILY PO 06/07/17 09:00 06/08/17 10:22 (Duragesic 25 Mcg Patch.72 Hr) 1 patch Q2D T-DERMAL 06/06/17 20:00 06/06/17 22:14 Miscellaneous Information 1 Q2D T-DERMAL 06/06/17 20:00 Patient Own Medication PT OWN MED: LEVOCETIRIZINE 5 MG PO DAILY DAILY PO 06/07/17 09:00 Future Hold (Pepcid) 20 mg DAILY PO 06/07/17 09:00 06/08/17 10:23 Patient Own Medication hold sbp < 110 or hr < 60... DAILY PO 06/07/17 09:00 Future Hold (Vasotec Inj) 1.25 mg Q6H PRN IV PUSH 06/07/17 05:45 (Catapres) 0.1 mg Q6H PRN PO 06/07/17 05:45 (Tylenol) 650 mg Q4H PRN PO 06/07/17 05:45 06/07/17 18:02 (Zofran Inj) 4 mg Q6H PRN IVP 06/07/17 05:45 (Katerin-Colace) 1 tab BID PO 06/07/17 09:00 06/08/17 10:23 (Milk Of Magnesia Liq) 30 ml Q12H PRN PO 06/07/17 05:45 (Senokot) 17.2 mg Q12H PRN PO 06/07/17 05:45 (Dulcolax Supp) 10 mg DAILY PRN RECTAL 06/07/17 05:45 (Lactulose Liq) 30 ml DAILY PRN PO 06/07/17 05:45 (Folate) 1 mg DAILY PO 06/07/17 09:00 06/12/17 08:59 06/08/17 10:22 (Vitamin B1) 100 mg DAILY PO 06/07/17 09:00 06/08/17 10:22 (Theragran M Tab) 1 tab DAILY PO 06/07/17 09:00 06/12/17 08:59 06/08/17 10:21 (Romazicon Inj) 0.2 mg Q1M PRN IV PUSH 06/07/17 05:45 (Ativan) 1 mg Q4H PRN PO 06/07/17 05:45 06/07/17 20:09 (Ativan Inj) 1 mg Q4H PRN IV PUSH 06/07/17 05:45 (Ativan) 2 mg Q2H PRN PO 06/07/17 05:45 (Ativan Inj) 2 mg Q2H PRN IV PUSH 06/07/17 05:45 (Ativan Inj) 2 mg Q1H PRN IV PUSH 06/07/17 05:45 (Ativan Inj) 2 mg Q15M PRN IV PUSH 06/07/17 05:45 (Lipitor) 80 mg DAILY PO 06/08/17 09:00 06/08/17 10:21 (Duragesic 25 Mcg Patch.72 Hr) 1 patch Q24H T-DERMAL 06/08/17 10:15 UNV Vital Signs / I&O Vital Signs Date Time Temp Pulse Resp B/P (MAP) Pulse Ox O2 Delivery O2 Flow Rate FiO2 06/08/17 12:13 98.2 95 18 125/83 (97) 95 06/08/17 10:00 97.6 106 18 135/76 (95) 96 06/08/17 05:00 58 06/08/17 04:00 97.5 57 20 128/74 (92) 96 06/08/17 04:00 57 06/08/17 03:00 64 06/08/17 02:00 56 06/08/17 01:00 64 06/08/17 00:00 97.4 62 19 125/80 (95) 98 06/08/17 00:00 62 06/07/17 23:00 70 06/07/17 22:00 64 06/07/17 21:00 58 06/07/17 20:00 60 06/07/17 20:00 98.9 60 18 116/69 (85) 96 06/07/17 17:45 68 18 136/97 (110) 97 06/07/17 13:58 162/73 (102) 06/07/17 13:44 98.0 76 19 172/83 (112) 97 I/O 06/07/17 06/07/17 06/07/17 06/08/17 06/08/17 06/08/17 07:00 15:00 23:00 07:00 15:00 23:00 Intake Total 200 ml 460 ml 320 ml Output Total 325 ml 400 ml 600 ml Balance 200 ml -325 ml 60 ml -280 ml Intake Oral 200 ml 460 ml 320 ml Output Urine Total 325 ml 400 ml 600 ml # Bowel Movements 1 Physical Exam GENERAL: In NAD SKIN: Warm and dry. HEAD: Normocephalic. EYES: No scleral icterus. No injection or drainage. NECK: Supple, trachea midline. No JVD or lymphadenopathy. CARDIOVASCULAR: Regular rate and rhythm without murmurs, gallops, or rubs. RESPIRATORY: Breath sounds equal bilaterally. No accessory muscle use. GASTROINTESTINAL: Abdomen soft, non-tender, nondistended. MUSCULOSKELETAL: No cyanosis, or edema. Groin stable Laboratory Laboratory Tests Test 06/07/17 20:24 06/08/17 05:25 White Blood Count 8.4 TH/MM3 7.3 TH/MM3 Red Blood Count 4.38 MIL/MM3 4.61 MIL/MM3 Hemoglobin 13.4 GM/DL 14.1 GM/DL Hematocrit 40.3 % 41.8 % Mean Corpuscular Volume 92.0 FL 90.8 FL Mean Corpuscular Hemoglobin 30.6 PG 30.6 PG Mean Corpuscular Hemoglobin Concent 33.3 % 33.8 % Red Cell Distribution Width 14.6 % 14.7 % Platelet Count 166 TH/MM3 163 TH/MM3 Mean Platelet Volume 7.2 FL 6.7 FL Neutrophils (%) (Auto) 66.2 % 62.4 % Lymphocytes (%) (Auto) 23.1 % 26.3 % Monocytes (%) (Auto) 9.5 % 9.5 % Eosinophils (%) (Auto) 0.4 % 0.8 % Basophils (%) (Auto) 0.8 % 1.0 % Neutrophils # (Auto) 5.6 TH/MM3 4.6 TH/MM3 Lymphocytes # (Auto) 1.9 TH/MM3 1.9 TH/MM3 Monocytes # (Auto) 0.8 TH/MM3 0.7 TH/MM3 Eosinophils # (Auto) 0.0 TH/MM3 0.1 TH/MM3 Basophils # (Auto) 0.1 TH/MM3 0.1 TH/MM3 CBC Comment DIFF FINAL DIFF FINAL Differential Comment Blood Urea Nitrogen 26 MG/DL Creatinine 1.00 MG/DL Random Glucose 101 MG/DL Calcium Level 8.5 MG/DL Sodium Level 135 MEQ/L Potassium Level 5.0 MEQ/L Chloride Level 100 MEQ/L Carbon Dioxide Level 26.2 MEQ/L Anion Gap 9 MEQ/L Estimat Glomerular Filtration Rate 75 ML/MIN Total Creatine Kinase 88 U/L Triglycerides Level 186 MG/DL Cholesterol Level 184 MG/DL LDL Cholesterol 82 MG/DL HDL Cholesterol 64.6 MG/DL Cholesterol/HDL Ratio 2.84 RATIO Assessment and Plan Problem List: (1) Unstable angina ICD Codes: I20.0 - Unstable angina (2) CAD (coronary artery disease) ICD Codes: I25.10 - Atherosclerotic heart disease of [place] coronary artery without angina pectoris (3) Dyslipidemia ICD Codes: E78.5 - Hyperlipidemia, unspecified Assessment and Plan Remains stable p PCI. Continue Plavix, ASA, increase Crestor to 40 mg daily. Groin stable. DC home. F/u in [place]. Jackie Holman MD Jun 08, 2017 12:44
[2017-06-08] MEDS ORDERED: ATOR40TA16 PO (13:31)
--- NOTE | 2017-06-08 13:32 | HHI.DS ---
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 (3) ETOH abuse ICD Code: F10.10 - Alcohol abuse, uncomplicated Procedures For cardiac catheterization Brief History - From Admission chest pain midsternal with radiation to shoulder blades pressure like shortness of breath has been sweating a lot more in past 2 weeks like hot flushes similar to what he had about 1 week prior to heart attack- in november 2016 s/p 2 stent BP was high on arrival here not sure of bp at home0 did not bring machine took nitro but did not help but here more ntg given and asa and now it is improved - and now gone was having bad acid reflux like burning has hx of barretts and need egd every year no other symptoms recent travel from [place] and arrived monday- [address] CBC/BMP: 06/08/17 0525 06/08/17 0525 Significant Findings Laboratory Tests Test 06/06/17 15:45 06/06/17 22:58 06/07/17 04:22 06/07/17 07:56 Monocytes (%) (Auto) 8.5 % (0.0-8.0) 9.5 % (0.0-8.0) Myelocytes 1 % (0-0) Activated Partial Thromboplast Time 23.3 SEC (24.3-30.1) Blood Urea Nitrogen 32 MG/DL (7-18) 28 MG/DL (7-18) Random Glucose 108 MG/DL (74-106) Sodium Level 135 MEQ/L (136-145) 135 MEQ/L (136-145) Carbon Dioxide Level 20.7 MEQ/L (21.0-32.0) Estimat Glomerular Filtration Rate 69 ML/MIN (>89) 74 ML/MIN (>89) Creatine Kinase MB 4.0 NG/ML (0.5-3.6) Troponin I LESS THAN 0.02 NG/ML LESS THAN 0.02 NG/ML LESS THAN 0.02 NG/ML Test 06/07/17 20:24 06/08/17 05:25 Red Blood Count 4.38 MIL/MM3 (4.50-5.90) Monocytes (%) (Auto) 9.5 % (0.0-8.0) 9.5 % (0.0-8.0) Mean Platelet Volume 6.7 FL (7.0-11.0) Blood Urea Nitrogen 26 MG/DL (7-18) Sodium Level 135 MEQ/L (136-145) Estimat Glomerular Filtration Rate 75 ML/MIN (>89) Triglycerides Level 186 MG/DL (42-150) HDL Cholesterol 64.6 MG/DL (40.0-60.0) PE at Discharge GENERAL: This is a well-nourished, well-developed patient, in no apparent distress. CARDIOVASCULAR: Regular rate and rhythm without murmurs, gallops, or rubs. RESPIRATORY: Clear to auscultation. Breath sounds equal bilaterally. No wheezes , rales, or rhonchi. GASTROINTESTINAL: Abdomen soft, non-tender, nondistended. Normal active bowel sounds MUSCULOSKELETAL: Extremities without clubbing, cyanosis, or edema. NEURO: Alert & Oriented x4 to person, place, time, situation. Moves all ext x4 Pt update on day of discharge Please see daily progress note Hospital Course Patient was seen and treated for acute coronary syndrome. Patient have cardiac catheterization results with her available medical record. Patient was doing very well. He is Crestor was changed to atorvastatin and the patient was continued on medical management Pt Condition on Discharge: Good Discharge Disposition: Discharge Home Discharge Time: <= 30 minutes Discharge Instructions DIET: Follow Instructions for: Heart Healthy Diet Activities you can perform: Regular-No Restrictions Follow up Referrals: Cardiology - 1 Week New Medications: Atorvastatin (Atorvastatin) 40 Mg Tab 40 MG PO HS for Cholesterol Management, #30 TAB 0 Refills Continued Medications: Aspirin (Aspirin) 81 Mg Chew 81 MG CHEW DAILY, TAB 0 Refills Celecoxib (Celebrex) 200 Mg Cap 200 MG PO DAILY for Pain Management, CAP 0 Refills Clopidogrel (Clopidogrel) 75 Mg Tab 75 MG PO DAILY for Blood Clot Prevention, TAB 0 Refills Fentanyl Patch 72 HR (Fentanyl Patch 72 HR) 25 Mcg/Hr Patch 25 MCG T-DERMAL Q24H for Pain Management, PATCH 0 Refills Finasteride (Alopecia) (Finasteride) 1 Mg Tab 5 MG PO DAILY Hydrocodone-Acetaminophen (Hydrocodone-Acetaminophen) 10-325 mg Tab 1 TAB PO Q12HR PRN for PAIN, TAB 0 Refills Levocetirizine (Levocetirizine) 5 Mg Tab 5 MG PO DAILY for Allergy Management, TAB 0 Refills Lisinopril (Lisinopril) 10 Mg Tab 10 MG PO DAILY, TAB 0 Refills Pantoprazole (Pantoprazole) 40 Mg Tab 40 MG PO DAILY for Reflux, TAB 0 Refills Ranitidine (Zantac) 150 Mg Tab 150 MG PO DAILY for Reduce Stomach Acid, TAB 0 Refills Verapamil ER 24 HR (Verapamil ER 24 HR) 300 Mg Cap 300 MG PO HS, CAP 0 Refills Discontinued Medications: Rosuvastatin (Rosuvastatin) 20 Mg Tab 20 MG PO DAILY for Cholesterol Management, TAB 0 Refills Kayleen Alva MD Jun 08, 2017 13:32
--- NOTE | 2017-06-08 13:33 | HHI.DCPOC ---
Discharge Care Plan Diagnosis: (1) Unstable angina Goals to Promote Your Health * To prevent worsening of your condition and complications * To maintain your health at the optimal level Directions to Meet Your Goals Take your medications as prescribed Follow your dietary instruction Follow activity as directed Keep your appointments as scheduled Take your immunizations and boosters as scheduled If your symptoms worsen call your PCP, if no PCP go to Urgent Care Center or Emergency Room Smoking is Dangerous to Your Health. Avoid second hand smoke Call the 24-hour hour crisis hotline for domestic abuse at Kayleen Alva MD Jun 08, 2017 13:33
--- NOTE | 2017-06-08 16:20 | EKG ---
Date Performed: 06/08/2017 Time Performed: 04:15:42 PTAGE: 66 years EKG: Sinus bradycardia Rightward axis Right bundle branch block Abnormal ECG PREVIOUS TRACING : 06/07/2017 21.27 Compared to prior tracing no significant change DOCTOR: Zaynab Mares Interpretating Date/Time 06/08/2017 16:19:59
--- NOTE | 2017-06-08 16:20 | EKG ---
Date Performed: 06/07/2017 Time Performed: 21:27:24 PTAGE: 66 years EKG: Sinus bradycardia Right axis deviation Right bundle branch block Abnormal ECG PREVIOUS TRACING : 06/07/2017 04.25 Compared to prior tracing no significant change DOCTOR: Zaynab Mares Interpretating Date/Time 06/08/2017 16:19:47
== END 2017-06-08 14:56 | disposition home or self-care (01) ==
LOC: NEPC 15:00 → NEDH 17:43 → NEPHCDU 19:16 → HCIS 06-07 16:51 → HCPC 06-07 17:38
PROVIDERS: ADMIT Hospitalist; ATTEND Hospitalist
DX: R07.89 Other chest pain (principal); R06.02 Shortness of breath; I25.2 Old myocardial infarction; K21.9 Gastro-esophageal reflux disease without esophagitis; R61 Generalized hyperhidrosis; M54.9 Dorsalgia, unspecified; I45.10 Unspecified right bundle-branch block; R00.1 Bradycardia, unspecified; I25.110 Atherosclerotic heart disease of native coronary artery with unstable angina pectoris; I10 Essential (primary) hypertension; K22.70 Barrett's esophagus without dysplasia; I24.9 Acute ischemic heart disease, unspecified; I34.0 Nonrheumatic mitral (valve) insufficiency; I35.0 Nonrheumatic aortic (valve) stenosis; E78.5 Hyperlipidemia, unspecified; E78.00 Pure hypercholesterolemia, unspecified; F10.10 Alcohol abuse, uncomplicated; H91.90 Unspecified hearing loss, unspecified ear; M19.90 Unspecified osteoarthritis, unspecified site; Z79.82 Long term (current) use of aspirin; Z87.891 Personal history of nicotine dependence; Z79.899 Other long term (current) drug therapy; Z95.5 Presence of coronary angioplasty implant and graft; Z85.820 Personal history of malignant melanoma of skin; Z87.442 Personal history of urinary calculi; Z96.612 Presence of left artificial shoulder joint
CPT/HCPCS: 71020; 80048; 80061; 82550; 82552; 83690; 83735; 83880; 84484; 85002; 85007; 85025; 85027; 85610; 85730; 92928; 93005; 93458; 99152; 99153; 99285; C1725; C1760; C1769; C1874; C1887; C1893; G0269; G0378; J1644; J2250; J3010; Q9967